=== PATIENT | female | born 1945 | race Caucasian/White ===

== ENCOUNTER → 2020-04-20 | Outpatient (CLI) | payer MEDICARE, BC ==
[2020-04-20 10:58] LABS: HEMOGLOBIN 14.4 g/dL (12.5-16.0); MEAN CELL VOLUME 91 fl (78-100); MEAN CORPUSCULAR HEMOGLOBIN 29 pg (27-31); MEAN CORPUSCULAR HGB CONC 32 g/dL (33-37); MEAN PLATELET VOLUME 9.1 fl (7.4-10.4); PLATELET COUNT 204 K/mm3 (130-400); RED BLOOD COUNT 4.93 M/mm3 (4.10-5.30); RED CELL DISTRIBUTION WIDTH 17.9 % (11.5-14.5)
[2020-04-20 11:05] LABS: ALBUMIN 3.7 g/dL (3.4-4.8)
[2020-04-20 11:06] LABS: POTASSIUM 4.5 mmol/L (3.5-5.1)
[2020-04-20 11:07] LABS: CALCIUM 9.4 mg/dL (8.3-10.5)
[2020-04-20 11:10] LABS: TOTAL BILIRUBIN 0.5 mg/dL (0.2-1.2)
[2020-04-20 11:36] LABS: LYMPHOCYTE 6 % (20-51); MONOCYTE 11 % (3-10); NEUTROPHILS 83 % (42-75)
== END ==
LOC: LAB 10:39
PROVIDERS: Family Medicine
DX: E03.9 Hypothyroidism, unspecified (principal)

== ENCOUNTER → 2020-04-22 | Outpatient (CLI) | payer MEDICARE, BC | LOC: LAB 12:52 | PROVIDERS: Family Medicine | DX: E03.9 Hypothyroidism, unspecified (principal) ==

== ENCOUNTER → 2021-01-06 | Outpatient (CLI) | payer MEDICARE, BC | LOC: LAB 07:23 | DX: Z20.822 Contact with and (suspected) exposure to COVID-19 (principal) ==

== ENCOUNTER → 2021-01-25 | Outpatient (CLI) | payer MEDICARE, BC | LOC: RAD 10:00 | DX: I65.23 Occlusion and stenosis of bilateral carotid arteries (principal) ==

== ENCOUNTER → 2021-01-27 | Outpatient (CLI) | payer MEDICARE, BC | LOC: LAB 09:49 | DX: Z20.822 Contact with and (suspected) exposure to COVID-19 (principal) ==

== ENCOUNTER → 2021-02-17 | Outpatient (CLI) | payer MEDICARE, BC | LOC: LAB 11:00 | DX: Z20.822 Contact with and (suspected) exposure to COVID-19 (principal) ==

== ENCOUNTER → 2021-03-06 | Outpatient (CLI) | payer MEDICARE, BC ==
[2021-03-06 11:54] LABS: BASO # 0.1 (0.02-0.10); EOS # 0.5 (0.04-0.40); HEMATOCRIT 44.5 % (37.0-47.0); HEMOGLOBIN 14.1 g/dL (12.5-16.0); LYMPH# 1.8 (1.50-4.00); MEAN CELL VOLUME 93 fl (78-100); MEAN CORPUSCULAR HEMOGLOBIN 29 pg (27-31); MEAN CORPUSCULAR HGB CONC 32 g/dL (33-37); MEAN PLATELET VOLUME 9.4 fl (7.4-10.4); MONO # 0.8 (0.20-0.80); NEU # 5.2 (1.40-6.50); PLATELET COUNT 275 K/mm3 (130-400); RED BLOOD COUNT 4.79 M/mm3 (4.10-5.30); RED CELL DISTRIBUTION WIDTH 14.9 % (11.5-14.5); WHITE BLOOD COUNT 8.3 K/mm3 (4.8-10.8)
[2021-03-06 12:05] LABS: ALBUMIN 4.1 g/dL (3.4-4.8); POTASSIUM 4.1 mmol/L (3.5-5.1)
[2021-03-06 12:07] LABS: CALCIUM 9.2 mg/dL (8.3-10.5)
[2021-03-06 12:08] LABS: TOTAL PROTEIN 6.9 g/dL (6.2-8.1)
[2021-03-06 12:10] LABS: TOTAL BILIRUBIN 0.7 mg/dL (0.2-1.2)
== END ==
LOC: LAB 11:40
PROVIDERS: Family Medicine
DX: Z00.00 Encounter for general adult medical examination without abnormal findings (principal); E03.9 Hypothyroidism, unspecified; E78.5 Hyperlipidemia, unspecified; E55.9 Vitamin D deficiency, unspecified

== ENCOUNTER → 2021-03-10 | Outpatient (CLI) | payer MEDICARE, BC | LOC: LAB 10:26 | DX: Z20.822 Contact with and (suspected) exposure to COVID-19 (principal) ==

== ENCOUNTER → 2021-03-31 | Outpatient (CLI) | payer MEDICARE, BC | LOC: LAB 11:44 | DX: Z20.822 Contact with and (suspected) exposure to COVID-19 (principal) ==

== ENCOUNTER → 2021-04-13 | Outpatient (CLI) | payer MEDICARE, BC | LOC: MAMMO 12:22 | DX: N64.89 Other specified disorders of breast (principal) ==

== ENCOUNTER → 2022-03-06 | Outpatient (CLI) | payer MEDICARE, BC ==
[2022-03-06 11:32] LABS: ALBUMIN 4.2 g/dL (3.4-4.8)
[2022-03-06 11:33] LABS: BASO # 0.12 K/mm3 (0.02-0.10); CALCIUM 9.6 mg/dL (8.3-10.5); EOS # 0.35 K/mm3 (0.04-0.40); EOS % 3.4 % (1.0-5.0); HEMATOCRIT 45.8 % (37.0-47.0); HEMOGLOBIN 14.8 g/dL (12.5-16.0); LYMPH# 2.08 K/mm3 (1.50-4.00); MEAN CELL VOLUME 93 fl (78-100); MEAN CORPUSCULAR HEMOGLOBIN 30 pg (27-31); MEAN CORPUSCULAR HGB CONC 32 g/dL (33-37); MEAN PLATELET VOLUME 9.2 fl (7.4-10.4); MONO # 0.65 K/mm3 (0.20-0.80); NEU # 7.02 K/mm3 (1.40-6.50); PLATELET COUNT 322 K/mm3 (130-400); RED BLOOD COUNT 4.94 M/mm3 (4.10-5.30); WHITE BLOOD COUNT 10.2 K/mm3 (4.8-10.8)
[2022-03-06 11:37] LABS: TOTAL BILIRUBIN 0.6 mg/dL (0.2-1.2)
== END ==
LOC: LAB 11:08
PROVIDERS: Family Medicine
DX: Z00.00 Encounter for general adult medical examination without abnormal findings (principal); C34.90 Malignant neoplasm of unspecified part of unspecified bronchus or lung; C79.31 Secondary malignant neoplasm of brain; E78.5 Hyperlipidemia, unspecified; I10 Essential (primary) hypertension; I65.29 Occlusion and stenosis of unspecified carotid artery; I63.9 Cerebral infarction, unspecified; E03.9 Hypothyroidism, unspecified; G31.84 Mild cognitive impairment of uncertain or unknown etiology; E55.9 Vitamin D deficiency, unspecified

== ENCOUNTER → 2023-09-26 | Outpatient (CLI) | payer MEDICARE, BC ==
[~2023-09-26] MED LIST: AMLODIPINE BESYL5 MG PO; ATORVASTATIN CA40 MG PO; DONEPEZIL HCL10 MG PO; ELIQUIS5 MG PO; LEVOTHYROXINE0.05 MG PO; MEMANTINE HCL10 MG PO; MUPIROCIN2% TP
== END ==
LOC: RAD 13:51
DX: E23.6 Other disorders of pituitary gland (principal); J44.9 Chronic obstructive pulmonary disease, unspecified; J98.4 Other disorders of lung; K11.20 Sialoadenitis, unspecified
CPT/HCPCS: Q9967

== ENCOUNTER → 2024-04-24 | Outpatient (CLI) | payer MEDICARE, BC ==
[~2024-04-24] MED LIST changes: +BETAMETHASONE D0.05% TOP; +BIOTIN10000 MCG PO; +CALCIUM 600 PLU1 TAB PO; +CEPHALEXIN500 M1 PO; +CIPRO250 M1 PO; +CLINDAMYCIN PHOSPH2% VG; +GARLIC SUPPLEM300 MG; +KEYTRUDA25 MG/ML IV; +KRILL OIL500 MG; +MAGNESIUM CHLOR70 MG; +MULTIVITAMIN1 EACH PO; +MYRBETRIQ50 MG PO; +VITAMIN C500 MG; +VITAMIN D350 MCG PO
[2024-06-16 11:31] LABS: ALBUMIN 3.9 g/dL (3.4-4.8); CALCIUM 9.3 mg/dL (8.3-10.5); TOTAL BILIRUBIN 0.5 mg/dL (0.2-1.2); TOTAL PROTEIN 6.6 g/dL (6.2-8.1)
[2024-06-16 11:34] LABS: BASO # 0.04 K/mm3 (0.02-0.10); EOS # 0.34 K/mm3 (0.04-0.40); EOS % 4.7 % (1.0-5.0); HEMATOCRIT 43.4 % (37.0-47.0); HEMOGLOBIN 13.8 g/dL (12.5-16.0); LYMPH# 1.24 K/mm3 (1.50-4.00); MEAN CELL VOLUME 92 fl (78-100); MEAN CORPUSCULAR HEMOGLOBIN 29 pg (27-31); MEAN CORPUSCULAR HGB CONC 32 g/dL (33-37); MEAN PLATELET VOLUME 9.5 fl (7.4-10.4); MONO # 0.69 K/mm3 (0.20-0.80); NEU # 4.98 K/mm3 (1.40-6.50); PLATELET COUNT 297 K/mm3 (130-400); RED BLOOD COUNT 4.73 M/mm3 (4.10-5.30); RED CELL DISTRIBUTION WIDTH 14.4 % (11.5-14.5); WHITE BLOOD COUNT 7.3 K/mm3 (4.8-10.8)
== END ==
LOC: LAB 12:11
PROVIDERS: Family Medicine
DX: E78.00 Pure hypercholesterolemia, unspecified (principal); E03.9 Hypothyroidism, unspecified; I10 Essential (primary) hypertension; E55.9 Vitamin D deficiency, unspecified

== ENCOUNTER 2024-06-05 14:22 | Emergency (ER) | payer MEDICARE, BC ==
[~2024-06-05] VITALS: Ht 154.9 cm; Wt 56.4 kg
[~2024-06-05 14:22] MED LIST changes: -BETAMETHASONE D0.05% TOP; -BIOTIN10000 MCG PO; -CALCIUM 600 PLU1 TAB PO; -CEPHALEXIN500 M1 PO; -CIPRO250 M1 PO; -CLINDAMYCIN PHOSPH2% VG; -GARLIC SUPPLEM300 MG; -KEYTRUDA25 MG/ML IV; -KRILL OIL500 MG; -MAGNESIUM CHLOR70 MG; -MULTIVITAMIN1 EACH PO; -MYRBETRIQ50 MG PO; -VITAMIN C500 MG; -VITAMIN D350 MCG PO
[2024-06-05 14:52] LABS: BASO # 0.07 K/mm3 (0.02-0.10); EOS % 6.1 % (1.0-5.0); HEMATOCRIT 39.3 % (37.0-47.0); HEMOGLOBIN 12.7 g/dL (12.5-16.0); LYMPH# 1.46 K/mm3 (1.50-4.00); MEAN CELL VOLUME 90 fl (78-100); MEAN CORPUSCULAR HEMOGLOBIN 29 pg (27-31); MEAN CORPUSCULAR HGB CONC 32 g/dL (33-37); MEAN PLATELET VOLUME 8.7 fl (7.4-10.4); MONO # 0.61 K/mm3 (0.20-0.80); NEU # 4.01 K/mm3 (1.40-6.50); PLATELET COUNT 368 K/mm3 (130-400); RED BLOOD COUNT 4.38 M/mm3 (4.10-5.30); RED CELL DISTRIBUTION WIDTH 13.9 % (11.5-14.5); WHITE BLOOD COUNT 6.6 K/mm3 (4.8-10.8)
[2024-06-05 14:57] LABS: ALBUMIN 3.8 g/dL (3.4-4.8)
[2024-06-05 14:58] LABS: CALCIUM 9.1 mg/dL (8.3-10.5)
[2024-06-05 15:00] LABS: TOTAL PROTEIN 6.2 g/dL (6.2-8.1)
[2024-06-05 15:01] LABS: TOTAL BILIRUBIN 0.3 mg/dL (0.2-1.2)
[2024-06-05] MEDS ORDERED: Iohexol 350 - 100 ML VIAL IV ONE (15:07)
[2024-06-05 15:13] LABS: PARTIAL THROMBOPLASTIN TIME 24.6 SECONDS (21.0-32.0); PROTHROMBIN TIME 10.2 SECONDS (9.0-12.0)
[2024-06-05 16:02] LABS: URINE APPEARANCE CLEAR (CLEAR); URINE COLOR YELLOW (YELLOW)
[2024-06-05 16:04] LABS: URINE BILIRUBIN NEGATIVE (NEGATIVE); URINE BLOOD NEGATIVE (NEGATIVE); URINE GLUCOSE NEGATIVE (NEGATIVE); URINE KETONE NEGATIVE (NEGATIVE); URINE LEUKOCYTE ESTERASE 1+ (NEGATIVE); URINE NITRATE NEGATIVE (NEGATIVE); URINE PROTEIN(semi-quant) NEGATIVE (NEGATIVE); URINE WBC 31-50 /hpf (0-3)
[2024-06-05] MEDS ORDERED: cefTRIAXone 1 G in Water For Injection,Sterile 10 ML IV ONE (16:30)
[2024-06-05] MEDS ORDERED: CIPRO250 M1 PO (16:37)
[2024-06-05 17:27] VITALS: BP 130/90
== END 2024-06-05 17:31 | disposition home or self-care (01) ==
LOC: ED 14:22
PROVIDERS: Physician Assistant
DX: N39.0 Urinary tract infection, site not specified (principal); C79.31 Secondary malignant neoplasm of brain; C34.90 Malignant neoplasm of unspecified part of unspecified bronchus or lung; R41.82 Altered mental status, unspecified; Z88.0 Allergy status to penicillin; Z79.899 Other long term (current) drug therapy
CPT/HCPCS: J0696; Q9967

== ENCOUNTER 2024-06-11 18:56 | Emergency (ER) | payer MEDICARE, BC ==
[~2024-06-11] VITALS: Ht 154.9 cm; Wt 57.0 kg
[~2024-06-11 18:56] MED LIST changes: -BETAMETHASONE D0.05% TOP; -BIOTIN10000 MCG PO; -CALCIUM 600 PLU1 TAB PO; -CEPHALEXIN500 M1 PO; -CLINDAMYCIN PHOSPH2% VG; -GARLIC SUPPLEM300 MG; -KEYTRUDA25 MG/ML IV; -KRILL OIL500 MG; -MAGNESIUM CHLOR70 MG; -MULTIVITAMIN1 EACH PO; -MYRBETRIQ50 MG PO; -VITAMIN C500 MG; -VITAMIN D350 MCG PO
[2024-06-11] MEDS ORDERED: NS 1,000 ML IV SCH (19:45)
[2024-06-11] MEDS ORDERED: cefTRIAXone 1 G in Water For Injection,Sterile 10 ML IV ONE (19:45)
[2024-06-11 20:18] LABS: BASO # 0.09 K/mm3 (0.02-0.10); EOS # 0.53 K/mm3 (0.04-0.40); HEMATOCRIT 38.3 % (37.0-47.0); LYMPH# 1.37 K/mm3 (1.50-4.00); MEAN CELL VOLUME 86 fl (78-100); MEAN CORPUSCULAR HEMOGLOBIN 29 pg (27-31); MEAN CORPUSCULAR HGB CONC 34 g/dL (33-37); MEAN PLATELET VOLUME 8.6 fl (7.4-10.4); MONO # 0.82 K/mm3 (0.20-0.80); NEU # 7.68 K/mm3 (1.40-6.50); PLATELET COUNT 349 K/mm3 (130-400); RED BLOOD COUNT 4.45 M/mm3 (4.10-5.30); RED CELL DISTRIBUTION WIDTH 13.6 % (11.5-14.5); WHITE BLOOD COUNT 10.5 K/mm3 (4.8-10.8)
[2024-06-11 20:25] LABS: SODIUM 125 mmol/L (136-145)
[2024-06-11 20:27] LABS: CALCIUM 9.7 mg/dL (8.3-10.5)
[2024-06-11 20:28] LABS: GLUCOSE 102 mg/dL (65-105); TOTAL PROTEIN 6.7 g/dL (6.2-8.1)
[2024-06-11 20:29] LABS: CARBON DIOXIDE 21 mmol/L (23-31)
[2024-06-11 20:30] LABS: TOTAL BILIRUBIN 0.8 mg/dL (0.2-1.2)
[2024-06-11 20:33] LABS: AST-SGOT 27 U/L (5-34)
[2024-06-11 20:34] LABS: ALT/SGPT 13 U/L (0-55)
[2024-06-11 20:42] LABS: TROPONIN-I < 0.030 ng/mL (0.00-0.033)
[2024-06-11] MEDS ORDERED: Ondansetron 4 MG/2 ML VIAL IV ONE (20:45)
[2024-06-11] MEDS ORDERED: Calcium Carbonate Chewable 500 MG TAB PO ONE (21:30)
[2024-06-11 22:00] VITALS: BP 140/75
[2024-06-11] MEDS ORDERED: CLINDAMYCIN PHOSPH2% VG (23:07)
[2024-06-11] MEDS ORDERED: MYRBETRIQ50 MG PO (23:10)
[2024-06-11] MEDS ORDERED: BETAMETHASONE D0.05% TOP (23:11)
[2024-06-11] MEDS ORDERED: VITAMIN C500 MG (23:12)
[2024-06-11] MEDS ORDERED: BIOTIN10000 MCG PO (23:13)
[2024-06-11] MEDS ORDERED: VITAMIN D350 MCG PO (23:15)
[2024-06-11] MEDS ORDERED: CALCIUM 600 PLU1 TAB PO (23:15)
[2024-06-11] MEDS ORDERED: KEYTRUDA25 MG/ML IV (23:16)
[2024-06-11] MEDS ORDERED: GARLIC SUPPLEM300 MG (23:16)
[2024-06-11] MEDS ORDERED: KRILL OIL500 MG (23:17)
[2024-06-11] MEDS ORDERED: MAGNESIUM CHLOR70 MG (23:18)
[2024-06-11] MEDS ORDERED: MULTIVITAMIN1 EACH PO (23:18)
== END 2024-06-11 22:00 | disposition other institution (70) ==
LOC: ED 18:56
PROVIDERS: Family Medicine
DX: N39.0 Urinary tract infection, site not specified (principal); R41.82 Altered mental status, unspecified; E87.8 Other disorders of electrolyte and fluid balance, not elsewhere classified
CPT/HCPCS: J0696; J2405; J7030

== ENCOUNTER 2024-06-11 20:48 | Inpatient (IN) | payer MEDICARE, BC ==
[~2024-06-11] VITALS: Ht 156.2 cm; Wt 56.2 kg
[2024-06-11] MEDS ORDERED: Acetaminophen 325 MG TAB PO PRN (21:30)
[2024-06-11] MEDS ORDERED: Polyethylene Glycol 3350 Powder 17 GM PACKET PO PRN (21:30)
[2024-06-11] MEDS ORDERED: NS 1,000 ML IV ONE (21:45)
[2024-06-11 22:00] VITALS: BP 122/74
[2024-06-11] MEDS ORDERED: Apixaban 5 MG TABLET PO SCH (22:42)
[2024-06-11] MEDS ORDERED: Memantine 5 MG TAB PO SCH (23:00)
[2024-06-11] MEDS ORDERED: CLINDAMYCIN PHOSPH2% VG (23:07)
[2024-06-11] MEDS ORDERED: MYRBETRIQ50 MG PO (23:10)
[2024-06-11] MEDS ORDERED: BETAMETHASONE D0.05% TOP (23:11)
[2024-06-11] MEDS ORDERED: VITAMIN C500 MG (23:12)
[2024-06-11] MEDS ORDERED: BIOTIN10000 MCG PO (23:13)
[2024-06-11] MEDS ORDERED: VITAMIN D350 MCG PO (23:15)
[2024-06-11] MEDS ORDERED: CALCIUM 600 PLU1 TAB PO (23:15)
[2024-06-11] MEDS ORDERED: GARLIC SUPPLEM300 MG (23:16)
[2024-06-11] MEDS ORDERED: KEYTRUDA25 MG/ML IV (23:16)
[2024-06-11] MEDS ORDERED: KRILL OIL500 MG (23:17)
[2024-06-11] MEDS ORDERED: MULTIVITAMIN1 EACH PO (23:18)
[2024-06-11] MEDS ORDERED: MAGNESIUM CHLOR70 MG (23:18)
[2024-06-12] VITALS (7 sets, daily range): BP systolic 99–170; BP diastolic 62–77
[2024-06-12 06:44] LABS: BASO # 0.08 K/mm3 (0.02-0.10); EOS # 0.46 K/mm3 (0.04-0.40); EOS % 7.3 % (1.0-5.0); HEMATOCRIT 34.9 % (37.0-47.0); HEMOGLOBIN 11.8 g/dL (12.5-16.0); LYMPH# 1.11 K/mm3 (1.50-4.00); MEAN CELL VOLUME 87 fl (78-100); MEAN CORPUSCULAR HEMOGLOBIN 29 pg (27-31); MEAN CORPUSCULAR HGB CONC 34 g/dL (33-37); MEAN PLATELET VOLUME 8.5 fl (7.4-10.4); MONO # 0.54 K/mm3 (0.20-0.80); NEU # 4.07 K/mm3 (1.40-6.50); PLATELET COUNT 287 K/mm3 (130-400); RED BLOOD COUNT 4.01 M/mm3 (4.10-5.30); RED CELL DISTRIBUTION WIDTH 13.8 % (11.5-14.5); WHITE BLOOD COUNT 6.3 K/mm3 (4.8-10.8)
[2024-06-12 06:53] LABS: CALCIUM 8.7 mg/dL (8.3-10.5)
[2024-06-12 06:56] LABS: TOTAL BILIRUBIN 0.5 mg/dL (0.2-1.2)
[2024-06-12] MEDS ORDERED: cefTRIAXone 1 G in Water For Injection,Sterile 10 ML IV SCH (07:00)
[2024-06-12] MEDS ORDERED: Donepezil 5 MG TAB PO SCH (09:00)
[2024-06-12] MEDS ORDERED: amLODIPine 5 MG TAB PO SCH (09:00)
[2024-06-12] MEDS ORDERED: Memantine 5 MG TAB PO SCH (09:00)
[2024-06-13 02:20] VITALS: BP 127/74
[2024-06-13 06:12] VITALS: BP 116/74
[2024-06-13 06:42] LABS: HEMATOCRIT 36.7 % (37.0-47.0); HEMOGLOBIN 12.1 g/dL (12.5-16.0); MEAN PLATELET VOLUME 8.8 fl (7.4-10.4); RED BLOOD COUNT 4.12 M/mm3 (4.10-5.30); RED CELL DISTRIBUTION WIDTH 14.4 % (11.5-14.5); WHITE BLOOD COUNT 5.8 K/mm3 (4.8-10.8)
[2024-06-13 06:50] LABS: CALCIUM 8.7 mg/dL (8.3-10.5)
[2024-06-13] MEDS ORDERED: CEPHALEXIN500 M1 PO (07:31)
[2024-06-13] MEDS ORDERED: Cephalexin 500 MG CAP PO SCH (09:00)
== END 2024-06-13 09:30 | disposition home or self-care (01) | DRG 690 ==
LOC: MED/SURG 20:48
PROVIDERS: Family Medicine; ADMIT Family Medicine
DX: N39.0 Urinary tract infection, site not specified (principal); E87.1 Hypo-osmolality and hyponatremia; C34.90 Malignant neoplasm of unspecified part of unspecified bronchus or lung; C79.31 Secondary malignant neoplasm of brain; R53.81 Other malaise; I10 Essential (primary) hypertension; E03.9 Hypothyroidism, unspecified; I25.10 Atherosclerotic heart disease of native coronary artery without angina pectoris; F03.90 Unspecified dementia, unspecified severity, without behavioral disturbance, psychotic disturbance, mood disturbance, and anxiety; Z86.73 Personal history of transient ischemic attack (TIA), and cerebral infarction without residual deficits
CPT/HCPCS: J0696; J7030

== ENCOUNTER → 2024-06-11 | Outpatient (REF) | payer MEDICARE, BC ==
[~2024-06-11] MED LIST changes: +BETAMETHASONE D0.05% TOP; +BIOTIN10000 MCG PO; +CALCIUM 600 PLU1 TAB PO; +CEPHALEXIN500 M1 PO; +CIPRO250 M1 PO; +CLINDAMYCIN PHOSPH2% VG; +GARLIC SUPPLEM300 MG; +KEYTRUDA25 MG/ML IV; +KRILL OIL500 MG; +MAGNESIUM CHLOR70 MG; +MULTIVITAMIN1 EACH PO; +MYRBETRIQ50 MG PO; +VITAMIN C500 MG; +VITAMIN D350 MCG PO
[2024-06-11 15:12] LABS: PH-URINE 5.5 (5.0 - 8.0); URINE APPEARANCE CLEAR (CLEAR); URINE BILIRUBIN NEGATIVE (NEGATIVE); URINE COLOR YELLOW (YELLOW); URINE GLUCOSE NEGATIVE (NEGATIVE); URINE KETONE NEGATIVE (NEGATIVE); URINE NITRATE NEGATIVE (NEGATIVE); URINE PROTEIN(semi-quant) NEGATIVE (NEGATIVE)
[2024-06-11 15:13] LABS: URINE BLOOD TRACE-INTACT (NEGATIVE); URINE LEUKOCYTE ESTERASE 2+ (NEGATIVE); URINE WBC 31-50 /hpf (0-3)
== END ==
LOC: LAB 14:30
PROVIDERS: Nurse Practitioner
DX: N39.0 Urinary tract infection, site not specified (principal)

== ENCOUNTER → 2024-06-19 | Outpatient (CLI) | payer MEDICARE, BC ==
[~2024-06-19] MED LIST changes: +BETAMETHASONE D0.05% TOP; +BIOTIN10000 MCG PO; +CALCIUM 600 PLU1 TAB PO; +CEPHALEXIN500 M1 PO; +CLINDAMYCIN PHOSPH2% VG; +GARLIC SUPPLEM300 MG; +KEYTRUDA25 MG/ML IV; +KRILL OIL500 MG; +MAGNESIUM CHLOR70 MG; +MULTIVITAMIN1 EACH PO; +MYRBETRIQ50 MG PO; +VITAMIN C500 MG; +VITAMIN D350 MCG PO
[2024-06-19 11:23] LABS: TOTAL PROTEIN 6.6 g/dL (6.2-8.1)
[2024-06-19 11:25] LABS: TOTAL BILIRUBIN 0.5 mg/dL (0.2-1.2)
== END ==
LOC: LAB 11:02
PROVIDERS: Nurse Practitioner
DX: E87.1 Hypo-osmolality and hyponatremia (principal)

== ENCOUNTER → 2024-07-17 | Outpatient (CLI) | payer MEDICARE, BC ==
[2024-07-17 11:26] LABS: PH-URINE 5.5 (5.0 - 8.0); URINE APPEARANCE CLOUDY (CLEAR); URINE BILIRUBIN NEGATIVE (NEGATIVE); URINE BLOOD TRACE-INTACT (NEGATIVE); URINE COLOR YELLOW (YELLOW); URINE GLUCOSE NEGATIVE (NEGATIVE); URINE KETONE NEGATIVE (NEGATIVE); URINE LEUKOCYTE ESTERASE 3+ (NEGATIVE); URINE NITRATE NEGATIVE (NEGATIVE); URINE PROTEIN(semi-quant) NEGATIVE (NEGATIVE); URINE WBC >50 /hpf (0-3)
== END ==
LOC: LAB 10:44
PROVIDERS: Nurse Practitioner
DX: N39.0 Urinary tract infection, site not specified (principal)

== ENCOUNTER 2024-08-18 18:09 | Emergency (ER) | payer MEDICARE, BC ==
[~2024-08-18] VITALS: Ht 154.9 cm; Wt 57.2 kg
[2024-08-18 19:10] LABS: BASO # 0.01 K/mm3 (0.02-0.10); EOS # 0.15 K/mm3 (0.04-0.40); EOS % 1.1 % (1.0-5.0); HEMATOCRIT 39.3 % (37.0-47.0); HEMOGLOBIN 13.2 g/dL (12.5-16.0); LYMPH# 0.45 K/mm3 (1.50-4.00); MEAN CELL VOLUME 88 fl (78-100); MEAN CORPUSCULAR HEMOGLOBIN 30 pg (27-31); MEAN CORPUSCULAR HGB CONC 34 g/dL (33-37); MEAN PLATELET VOLUME 9.8 fl (7.4-10.4); MONO # 0.66 K/mm3 (0.20-0.80); NEU # 12.59 K/mm3 (1.40-6.50); PLATELET COUNT 278 K/mm3 (130-400); RED BLOOD COUNT 4.47 M/mm3 (4.10-5.30); RED CELL DISTRIBUTION WIDTH 14.3 % (11.5-14.5); WHITE BLOOD COUNT 13.9 K/mm3 (4.8-10.8)
[2024-08-18 19:18] LABS: ALBUMIN 3.6 g/dL (3.4-4.8)
[2024-08-18 19:20] LABS: GLUCOSE 110 mg/dL (65-105); SODIUM 134 mmol/L (136-145); TOTAL PROTEIN 6.1 g/dL (6.2-8.1)
[2024-08-18 19:21] LABS: CALCIUM 9.7 mg/dL (8.3-10.5)
[2024-08-18 19:22] LABS: CARBON DIOXIDE 20 mmol/L (23-31); TOTAL BILIRUBIN 0.6 mg/dL (0.2-1.2)
[2024-08-18 19:26] LABS: AST-SGOT 23 U/L (5-34)
[2024-08-18 19:27] LABS: ALT/SGPT 16 U/L (0-55)
[2024-08-18 19:35] LABS: TROPONIN-I < 0.030 ng/mL (0.00-0.033)
[2024-08-18] MEDS ORDERED: NS 500 ML IV SCH ×2 (19:45→21:00)
[2024-08-18] MEDS ORDERED: Iohexol 350 - 100 ML VIAL IV ONE (20:56)
[2024-08-18 21:05] LABS: URINE APPEARANCE CLOUDY (CLEAR); URINE COLOR YELLOW (YELLOW)
[2024-08-18 21:07] LABS: PH-URINE 6.5 (5.0 - 8.0); URINE BILIRUBIN NEGATIVE (NEGATIVE); URINE BLOOD NEGATIVE (NEGATIVE); URINE GLUCOSE NEGATIVE (NEGATIVE); URINE KETONE NEGATIVE (NEGATIVE); URINE LEUKOCYTE ESTERASE 3+ (NEGATIVE); URINE NITRATE NEGATIVE (NEGATIVE); URINE PROTEIN(semi-quant) NEGATIVE (NEGATIVE)
[2024-08-18 21:12] LABS: URINE WBC >50 /hpf (0-3)
[2024-08-18 21:13] LABS: URINE MUCUS PRESENT (NOT PRESENT)
[2024-08-18] MEDS ORDERED: cefTRIAXone 1 G in Water For Injection,Sterile 10 ML IV ONE (21:15)
[2024-08-18] MEDS ORDERED: Ondansetron 4 MG/2 ML VIAL IV ONE (21:30)
[2024-08-18 21:45] VITALS: BP 92/68
== END 2024-08-18 21:45 | disposition other institution (70) ==
LOC: ED 18:09
PROVIDERS: Physician Assistant
DX: R41.82 Altered mental status, unspecified (principal); E87.1 Hypo-osmolality and hyponatremia; N39.0 Urinary tract infection, site not specified; Z79.899 Other long term (current) drug therapy; Z91.040 Latex allergy status; Z88.0 Allergy status to penicillin
CPT/HCPCS: J0696; J2405; J7040; Q9967

== ENCOUNTER 2024-08-18 21:25 | Inpatient (IN) | payer MEDICARE, BC ==
[~2024-08-18] VITALS: Ht 154.9 cm; Wt 55.1 kg
[2024-08-18] MEDS ORDERED: Ondansetron 4 MG/2 ML VIAL IV PRN (21:45)
[2024-08-18] MEDS ORDERED: Acetaminophen 325 MG TAB PO PRN (21:45)
[2024-08-18] MEDS ORDERED: NS 1,000 ML IV SCH (22:00)
[2024-08-18 22:24] VITALS: BP 107/63
[2024-08-19 02:27] VITALS: BP 102/62
[2024-08-19 05:58] VITALS: BP 100/62
[2024-08-19 06:06] LABS: BASO # 0.03 K/mm3 (0.02-0.10); EOS # 0.28 K/mm3 (0.04-0.40); EOS % 2.6 % (1.0-5.0); HEMATOCRIT 33.7 % (37.0-47.0); LYMPH# 0.77 K/mm3 (1.50-4.00); MEAN CELL VOLUME 90 fl (78-100); MEAN CORPUSCULAR HEMOGLOBIN 30 pg (27-31); MEAN CORPUSCULAR HGB CONC 33 g/dL (33-37); MEAN PLATELET VOLUME 9.7 fl (7.4-10.4); MONO # 0.61 K/mm3 (0.20-0.80); NEU # 9.21 K/mm3 (1.40-6.50); PLATELET COUNT 237 K/mm3 (130-400); RED BLOOD COUNT 3.74 M/mm3 (4.10-5.30); RED CELL DISTRIBUTION WIDTH 14.5 % (11.5-14.5); WHITE BLOOD COUNT 10.9 K/mm3 (4.8-10.8)
[2024-08-19 06:15] LABS: HEMOGLOBIN 11.1 g/dL (12.5-16.0)
[2024-08-19 06:19] LABS: ALBUMIN 2.9 g/dL (3.4-4.8)
[2024-08-19 06:22] LABS: TOTAL PROTEIN 4.9 g/dL (6.2-8.1)
[2024-08-19 06:24] LABS: TOTAL BILIRUBIN 0.6 mg/dL (0.2-1.2)
--- NOTE | 2024-08-19 07:00 | NUR ---
RESUMED CARE FROM ELDA STRINGER.
--- NOTE | 2024-08-19 08:30 | NUR ---
PATIENT IN RESTROOM UPON ARRIVAL TO ROOM. 650ML ILIA CLEAR URINE NOTED. PATIENT ASSISTED FROM RESTROOM TO BED FOR WEIGHT AND TO RECLINER WITH X2 ASSIST. SHUFFLE GAIT NOTED WITH CUEING NEEDED. PATIENT REPORTS DULL FLANK PAIN RATING 5/10 DENYING NEED FOR PRN. ASSESSMENT COMPLETED. IV TO LEFT AC PATENT, NS RUNNING AT 125ML/HR. NO COMPLAINTS AT THIS TIME. PATIENT REMAINS IN RECLINER, CHAIR ALARMED, CALL LIGHT WITHIN REACH.
[2024-08-19] MEDS ORDERED: amLODIPine 5 MG TAB PO SCH (09:00)
[2024-08-19] MEDS ORDERED: Multivitamin TAB PO SCH (09:00)
[2024-08-19] MEDS ORDERED: BETAMETHASONE DIP 0.05% TP SCH (09:00)
[2024-08-19] MEDS ORDERED: Apixaban 5 MG TABLET PO SCH (09:00)
[2024-08-19] MEDS ORDERED: Cholecalciferol (Vit D3) 25 MCG (1,000 Units) TAB PO SCH (09:00)
[2024-08-19] MEDS ORDERED: Calcium Carb/Vit D3 500 mg-5 mcg(200 Units) TAB PO SCH (09:00)
[2024-08-19] MEDS ORDERED: Memantine 5 MG TAB PO SCH (09:00)
[2024-08-19 10:01] VITALS: BP 98/64
[2024-08-19 14:00] VITALS: BP 111/61
[2024-08-19 17:44] VITALS: BP 109/61
--- NOTE | 2024-08-19 18:44 | NUR ---
REPORT TO JEOVANNY MCNULTY.
--- NOTE | 2024-08-19 19:53 | NUR ---
Report received from Luisa SCHROEDER. Patient resting in bed. A/0 to self, , place and Month, did not know the current year. IVF infusing NS at 125 ML/HR. Site patent to [facility] with arm board in place. Denies pain, SOA or cough. Assessment completed. HS medications given at this time. Takes whole without difficulty. Denies wants or needs. Bed alarm on. Call light in reach.
[2024-08-19] MEDS ORDERED: Donepezil 5 MG TAB PO SCH (21:00)
[2024-08-19] MEDS ORDERED: cefTRIAXone 1 G in Water For Injection,Sterile 10 ML IV SCH (21:00)
[2024-08-19 22:01] VITALS: BP 117/65
--- NOTE | 2024-08-19 22:19 | NUR ---
Ambulated to BR with max 2 assist. Needed cues to keep walker close and to stand up straight and put head up. Did not void. Brief damp. New bag of IVF hung to run at 75 ML/HR. Site patent.
[2024-08-20 02:12] VITALS: BP 138/70
--- NOTE | 2024-08-20 05:31 | NUR ---
Rested well all shift. Up to BR x2 with assist and walker. Needed cues each time for correct ambulation. Remains confused.
[2024-08-20 05:34] VITALS: BP 128/68
[2024-08-20 05:38] LABS: BASO # 0.05 K/mm3 (0.02-0.10); EOS # 0.49 K/mm3 (0.04-0.40); EOS % 7.5 % (1.0-5.0); HEMATOCRIT 32.2 % (37.0-47.0); HEMOGLOBIN 10.6 g/dL (12.5-16.0); LYMPH# 1.15 K/mm3 (1.50-4.00); MEAN CELL VOLUME 91 fl (78-100); MEAN CORPUSCULAR HEMOGLOBIN 30 pg (27-31); MEAN CORPUSCULAR HGB CONC 33 g/dL (33-37); MEAN PLATELET VOLUME 9.5 fl (7.4-10.4); MONO # 0.61 K/mm3 (0.20-0.80); NEU # 4.24 K/mm3 (1.40-6.50); PLATELET COUNT 203 K/mm3 (130-400); RED BLOOD COUNT 3.53 M/mm3 (4.10-5.30); RED CELL DISTRIBUTION WIDTH 14.9 % (11.5-14.5); WHITE BLOOD COUNT 6.6 K/mm3 (4.8-10.8)
[2024-08-20 05:47] LABS: ALBUMIN 2.9 g/dL (3.4-4.8)
[2024-08-20 05:49] LABS: CALCIUM 8.3 mg/dL (8.3-10.5)
[2024-08-20 05:50] LABS: TOTAL PROTEIN 4.8 g/dL (6.2-8.1)
[2024-08-20 05:52] LABS: TOTAL BILIRUBIN 0.4 mg/dL (0.2-1.2)
--- NOTE | 2024-08-20 06:49 | NUR ---
Dr. Diaz notified of CO2 of 17.
--- NOTE | 2024-08-20 06:56 | NUR ---
Report to Luisa SCHROEDER.
[2024-08-20 10:13] VITALS: BP 103/63
[2024-08-20 14:22] VITALS: BP 108/69
[2024-08-20 17:08] VITALS: BP 109/71
--- NOTE | 2024-08-20 18:38 | NUR ---
REPORT TO JEOVANNY MCNULTY.
--- NOTE | 2024-08-20 19:04 | NUR ---
Report received from Luisa SCHROEDER. Patient resting supine in bed with at bedside. A/O x4 tonight. Awake and talkative. Denies pain, SOA or cough. Denies pain or burning with urination. Assessment completed. INT patent to [facility]. Denies questions, wants or needs at this time. Bed alarm on. Call light in reach.
[2024-08-20 22:27] VITALS: BP 144/72
[2024-08-21 02:32] VITALS: BP 118/73
[2024-08-21 05:12] VITALS: BP 147/77
--- NOTE | 2024-08-21 06:14 | NUR ---
Rested well. Rang to go to BR PRN. More alert and conversing more then on admission.
--- NOTE | 2024-08-21 06:51 | NUR ---
Report to Luisa SCHROEDER.
--- NOTE | 2024-08-21 09:43 | NUR ---
PT IS ORIENTED TO SELF AND DATE, WAS ABLE TO TELL ME SHE WAS IN THE HOSPITAL BUT WAS UNSURE OF WHAT TOWN SHE WAS IN. WHEN ASKED A QUESTION SHE HAS TO THINK FOR SOME TIME BEFORE RESPONDING. PT STATES SHE FEELS WEAKER TODAY AND NAUSEATED. ZOFRAN GIVEN. DENIES PAIN. SITTING UP IN CHAIR WITH CALL LIGHT IN REACH AND CHAIR ALARM ON.
[2024-08-21 10:15] VITALS: BP 144/84
[2024-08-21] MEDS ORDERED: ONDANSETRON HYDR4 MG PO (10:46)
[2024-08-21] MEDS ORDERED: PEPCID 20MG TAB20 MG PO (10:46)
[2024-08-21] MEDS ORDERED: CEPHALEXIN500 M1 PO (10:48)
--- NOTE | 2024-08-21 13:11 | NUR ---
Discharge instructions and medications reviewed with pt and . D/C IV and telemetry. All belongings sent home with pt. Ambulated out of hopital with . No further questions or concerns stated at this time.
== END 2024-08-21 13:15 | disposition home or self-care (01) | DRG 690 ==
LOC: MED/SURG 21:25
PROVIDERS: ADMIT Physician Assistant
DX: N39.0 Urinary tract infection, site not specified (principal); C79.31 Secondary malignant neoplasm of brain; E87.1 Hypo-osmolality and hyponatremia; I10 Essential (primary) hypertension; I65.23 Occlusion and stenosis of bilateral carotid arteries; E03.9 Hypothyroidism, unspecified; K21.9 Gastro-esophageal reflux disease without esophagitis; F03.90 Unspecified dementia, unspecified severity, without behavioral disturbance, psychotic disturbance, mood disturbance, and anxiety; E78.5 Hyperlipidemia, unspecified; R53.81 Other malaise; Z79.01 Long term (current) use of anticoagulants; Z86.73 Personal history of transient ischemic attack (TIA), and cerebral infarction without residual deficits; Z79.890 Hormone replacement therapy; Z85.118 Personal history of other malignant neoplasm of bronchus and lung; Z88.0 Allergy status to penicillin
CPT/HCPCS: J0696; J2405; J7030

== ENCOUNTER 2024-08-30 18:41 | Emergency (ER) | payer MEDICARE, BC ==
[~2024-08-30] VITALS: Ht 154.9 cm; Wt 56.0 kg
[~2024-08-30 18:41] MED LIST changes: +ONDANSETRON HYDR4 MG PO; +PEPCID 20MG TAB20 MG PO
[2024-08-30] MEDS ORDERED: CEPHALEXIN250 MG PO (18:58)
[2024-08-30 19:09] LABS: ALBUMIN 3.9 g/dL (3.4-4.8); SODIUM 139 mmol/L (136-145)
[2024-08-30 19:10] LABS: BASO # 0.08 K/mm3 (0.02-0.10); CALCIUM 9.4 mg/dL (8.3-10.5); EOS # 0.39 K/mm3 (0.04-0.40); EOS % 5.3 % (1.0-5.0); HEMATOCRIT 41.3 % (37.0-47.0); HEMOGLOBIN 13.4 g/dL (12.5-16.0); MEAN CELL VOLUME 89 fl (78-100); MEAN CORPUSCULAR HEMOGLOBIN 29 pg (27-31); MEAN CORPUSCULAR HGB CONC 32 g/dL (33-37); MEAN PLATELET VOLUME 9.4 fl (7.4-10.4); NEU # 4.22 K/mm3 (1.40-6.50); PLATELET COUNT 340 K/mm3 (130-400); RED BLOOD COUNT 4.62 M/mm3 (4.10-5.30); RED CELL DISTRIBUTION WIDTH 14.3 % (11.5-14.5); WHITE BLOOD COUNT 7.4 K/mm3 (4.8-10.8)
[2024-08-30 19:11] LABS: GLUCOSE 93 mg/dL (65-105); TOTAL PROTEIN 6.6 g/dL (6.2-8.1)
[2024-08-30 19:12] LABS: CARBON DIOXIDE 19 mmol/L (23-31)
[2024-08-30 19:13] LABS: TOTAL BILIRUBIN 0.3 mg/dL (0.2-1.2)
[2024-08-30 19:17] LABS: URINE APPEARANCE SLIGHTLY CLOUDY (CLEAR); URINE BILIRUBIN NEGATIVE (NEGATIVE); URINE COLOR YELLOW (YELLOW); URINE GLUCOSE NEGATIVE (NEGATIVE); URINE KETONE NEGATIVE (NEGATIVE); URINE PROTEIN(semi-quant) NEGATIVE (NEGATIVE)
[2024-08-30 19:17] LABS: AST-SGOT 19 U/L (5-34)
[2024-08-30 19:18] LABS: URINE BLOOD NEGATIVE (NEGATIVE); URINE LEUKOCYTE ESTERASE 3+ (NEGATIVE); URINE NITRATE NEGATIVE (NEGATIVE); URINE WBC 16-30 /hpf (0-3)
[2024-08-30 19:18] LABS: ALT/SGPT 14 U/L (0-55)
[2024-08-30 19:25] LABS: PROTHROMBIN TIME 9.9 SECONDS (9.0-12.0)
[2024-08-30 19:28] LABS: TROPONIN-I < 0.030 ng/mL (0.00-0.033)
[2024-08-30] MEDS ORDERED: cefTRIAXone 1 G in Water For Injection,Sterile 10 ML IV ONE (19:30)
[2024-08-30] MEDS ORDERED: Iohexol 350 - 100 ML VIAL IV ONE (19:34)
[2024-08-30] MEDS ORDERED: CEPHALEXIN500 M1 PO (20:14)
[2024-08-30 20:52] VITALS: BP 120/97
== END 2024-08-30 20:54 | disposition home or self-care (01) ==
LOC: ED 18:41
PROVIDERS: Physician Assistant
DX: N39.0 Urinary tract infection, site not specified (principal); R41.82 Altered mental status, unspecified; Z88.0 Allergy status to penicillin; Z91.040 Latex allergy status
CPT/HCPCS: J0696; Q9967

== ENCOUNTER → 2024-09-09 | Outpatient (CLI) | payer MEDICARE, BC ==
[~2024-09-09] MED LIST changes: +CEPHALEXIN250 MG PO
== END ==
LOC: RAD 09:21
DX: I65.23 Occlusion and stenosis of bilateral carotid arteries (principal)

== ENCOUNTER → 2024-10-26 | Day surgery (SDC) | payer MEDICARE, BC ==
[~2024-10-26] MED LIST changes: +Lidocaine PF 2% (20 MG/ML) 5 ML VIAL ONE
== END ==
LOC: MSO
DX: Z12.11 Encounter for screening for malignant neoplasm of colon (principal); K21.9 Gastro-esophageal reflux disease without esophagitis; K44.9 Diaphragmatic hernia without obstruction or gangrene; K57.30 Diverticulosis of large intestine without perforation or abscess without bleeding; Z79.899 Other long term (current) drug therapy; Z79.01 Long term (current) use of anticoagulants; Z86.0100 Personal history of colon polyps, unspecified; Z87.891 Personal history of nicotine dependence; Z85.118 Personal history of other malignant neoplasm of bronchus and lung; Z86.73 Personal history of transient ischemic attack (TIA), and cerebral infarction without residual deficits
CPT/HCPCS: 00813; J2704; J7120

== ENCOUNTER 2025-01-23 16:35 | Emergency (ER) | payer MEDICARE, BC ==
[~2025-01-23] VITALS: Ht 12.7 cm; Wt 56.0 kg
[~2025-01-23 16:35] MED LIST changes: -Lidocaine PF 2% (20 MG/ML) 5 ML VIAL ONE
[2025-01-23 17:00] VITALS: BP 140/71
[2025-01-23] MEDS ORDERED: CEFDINIR300 MG PO (23:30)
== END 2025-01-23 18:14 | disposition home or self-care (01) ==
LOC: ED 16:35
DX: S80.02XA Contusion of left knee, initial encounter (principal); S00.83XA Contusion of other part of head, initial encounter; S80.211A Abrasion, right knee, initial encounter; Z91.040 Latex allergy status; Z87.891 Personal history of nicotine dependence; W18.30XA Fall on same level, unspecified, initial encounter; Y93.01 Activity, walking, marching and hiking

== ENCOUNTER 2025-01-23 21:41 | Emergency (ER) | payer MEDICARE, BC ==
[~2025-01-23] VITALS: Wt 56.0 kg
[2025-01-23 23:06] LABS: URINE COLOR YELLOW (YELLOW)
[2025-01-23 23:07] LABS: URINE APPEARANCE CLOUDY (CLEAR); URINE BILIRUBIN 1+ (NEGATIVE); URINE BLOOD TRACE-INTACT (NEGATIVE); URINE GLUCOSE NEGATIVE (NEGATIVE); URINE KETONE 2+ (NEGATIVE); URINE LEUKOCYTE ESTERASE 3+ (NEGATIVE); URINE NITRATE POSITIVE (NEGATIVE); URINE PROTEIN(semi-quant) TRACE (NEGATIVE)
[2025-01-23 23:15] LABS: URINE WBC >50 /hpf (0-3)
[2025-01-23] MEDS ORDERED: Cefdinir 300 MG CAP PO ONE (23:30)
[2025-01-23] MEDS ORDERED: CEFDINIR300 MG PO (23:30)
[2025-01-23 23:45] VITALS: BP 152/86
== END 2025-01-23 23:45 | disposition home or self-care (01) ==
LOC: ED 21:41
PROVIDERS: Family Medicine
DX: S00.532A Contusion of oral cavity, initial encounter (principal); R82.81 Pyuria; Z87.440 Personal history of urinary (tract) infections; Z85.118 Personal history of other malignant neoplasm of bronchus and lung; Z85.841 Personal history of malignant neoplasm of brain; Z86.73 Personal history of transient ischemic attack (TIA), and cerebral infarction without residual deficits; Z88.0 Allergy status to penicillin; Z91.040 Latex allergy status; W19.XXXA Unspecified fall, initial encounter

== ENCOUNTER 2025-03-02 13:12 | Observation (INO) | payer MEDICARE, BC ==
[~2025-03-02] VITALS: Ht 154.9 cm; Wt 53.5 kg
[~2025-03-02 13:12] MED LIST changes: +CEFDINIR300 MG PO
[2025-03-02] MEDS ORDERED: ATORVASTATIN CA40 MG PO (13:30)
[2025-03-02] MEDS ORDERED: SEPTRA DS 8001 TAB PO (13:31)
[2025-03-02] MEDS ORDERED: CEPHALEXIN250 M2 PO (13:31)
[2025-03-02] MEDS ORDERED: GEMTESA75 MG PO (13:33)
[2025-03-02] MEDS ORDERED: MIRABEGRON ER50 MG PO (13:34)
[2025-03-02 13:56] LABS: BASO # 0.04 K/mm3 (0.02-0.10); EOS # 0.08 K/mm3 (0.04-0.40); EOS % 0.5 % (1.0-5.0); HEMATOCRIT 40.2 % (37.0-47.0); HEMOGLOBIN 12.8 g/dL (12.5-16.0); LYMPH# 0.97 K/mm3 (1.50-4.00); MEAN CELL VOLUME 92 fl (78-100); MEAN CORPUSCULAR HEMOGLOBIN 29 pg (27-31); MEAN CORPUSCULAR HGB CONC 32 g/dL (33-37); MEAN PLATELET VOLUME 9.1 fl (7.4-10.4); MONO # 0.62 K/mm3 (0.20-0.80); NEU # 13.15 K/mm3 (1.40-6.50); PLATELET COUNT 288 K/mm3 (130-400); RED BLOOD COUNT 4.38 M/mm3 (4.10-5.30); WHITE BLOOD COUNT 14.9 K/mm3 (4.8-10.8)
[2025-03-02 14:01] LABS: ALBUMIN 3.5 g/dL (3.4-4.8); SODIUM 134 mmol/L (136-145)
[2025-03-02 14:02] LABS: CALCIUM 8.3 mg/dL (8.3-10.5)
[2025-03-02 14:03] LABS: GLUCOSE 104 mg/dL (65-105); TOTAL PROTEIN 6.3 g/dL (6.2-8.1)
[2025-03-02 14:05] LABS: CARBON DIOXIDE 20 mmol/L (23-31); TOTAL BILIRUBIN 0.5 mg/dL (0.2-1.2)
[2025-03-02 14:09] LABS: AST-SGOT 17 U/L (5-34)
[2025-03-02 14:10] LABS: ALT/SGPT 15 U/L (0-55); MAGNESIUM 1.92 mg/dL (1.60-2.60)
[2025-03-02 14:17] LABS: TROPONIN-I < 0.030 ng/mL (0.00-0.033)
[2025-03-02 15:16] LABS: PH-URINE 7.5 (5.0 - 8.0); URINE APPEARANCE SLIGHTLY CLOUDY (CLEAR); URINE BILIRUBIN NEGATIVE (NEGATIVE); URINE BLOOD NEGATIVE (NEGATIVE); URINE COLOR YELLOW (YELLOW); URINE GLUCOSE NEGATIVE (NEGATIVE); URINE KETONE NEGATIVE (NEGATIVE); URINE LEUKOCYTE ESTERASE 1+ (NEGATIVE); URINE NITRATE NEGATIVE (NEGATIVE); URINE PROTEIN(semi-quant) NEGATIVE (NEGATIVE); URINE WBC 31-50 /hpf (0-3)
[2025-03-02] MEDS ORDERED: cefTRIAXone 1 G in Water For Injection,Sterile 10 ML IV ONE (15:30)
[2025-03-02] MEDS ORDERED: NS 1,000 ML IV SCH (16:00)
[2025-03-02] MEDS ORDERED: Ondansetron 4 MG/2 ML VIAL IV PRN (16:00)
[2025-03-02] MEDS ORDERED: Acetaminophen 325 MG TAB PO PRN (16:00)
[2025-03-02] MEDS ORDERED: Bisacodyl 5 MG TAB PO PRN (16:00)
[2025-03-02 16:07] VITALS: BP 123/79
--- NOTE | 2025-03-02 18:00 | NUR ---
DURING ASSESSMENT THIS NURSE ASKED PTS CAREGIVER QUESTIONS ABOUT PTS NOMRAL DAY AT HOME. PAT, PTS STATED SHE TENDS TO USE FURNTIURE TO GET AROUND THE HOME. PAT REPORTS SHE HAS BACK PAIN THAT CAUSES HER TO BE STOOPED OVER. PT IS CURRENTLY DROWSY, WILL OPEN HER EYES IF TOUCHED ON THE SHOULDER OR HER NAME IS SAID. PTS ABDOMEN IS FIRM, PT GRIMACES WHEN PALPATED. PAT REPORTS SHE HASN'T HAD A BM IN ABOUT 3 DAYS. THIS NURSE ASKED PAT IF PT SWALLOWS PILLS AT HOME. HE REPLIED YES CONFIDENTLY. PT REFUSED WATER. THIS NURSE USED PUDDING AND PLACED PILLS WHOLE FOR PT TO SWALLOW. PT TOOK THE PUDDING AND CHEWED PILLS. PT COULD NOT EFFECTIVELY SWALLOW THEM. AFTER THIS, LEIA Bay RN ASKED PAT HOW SHE SWALLOWS PILLS AT HOME. PAT REPLIED "SHE SWALLOWS THEM IF I PLACE THEM ALL THE WAY TO THE BACK OF HER TOUGUE." PT IS NOW TAKING HER PILLS CRUSHED IN APPLESAUCE. PTS REQUESTED FOR HER TO USE THE RESTROOM. PAT WENT HOME AT THIS TIME. (183). DIMPLE ROMO AND THIS NURSE, ASSTED PT TO USE A WALKER WITH A GAIT BELT. PT STUTTER STEPPED 3-5 STEPS, WALKER BECAME UNSTABLE LIFTING OFF OF THE FLOOR. PTS LEGS CROSSED OVER EACH OTHER. THIS NURSE AND PCT MAX ASSISTED PT INTO BED. PT IS INCONTINENT OF URINE. WHILE CHANGING PTS BRIEF, PT BECAME RIGID, AND TEARFUL WHILE ATTMEPTING TO HOLD DOWN HER GOWN. THIS NURSE RE ASSURED PT SHE IS SAFE. ONCE PT WAS CHANGED AND COVERED BACK UP PT RELAXED. PTS BED ALARM AND CHAIR ALARM IS ON. CALL LIGHT WITHIN REACH.
--- NOTE | 2025-03-02 18:48 | NUR ---
PT ADDMITTED FOR OBSERVAITON FOR UTI AND ALTERED MENTAL STATUS. PTS IS HER PRIMARY CAREGIVER. CAREGIVER IS VAGUE IN ANSWERING ABOUT PTS BASELINE FUNCTIONING. PTS STATED TO THIS NURSE PT CAN SWALLOW PILLS WHOLE. PT WAS UNABLE TO SWALLOW PILLS WITH PUDDING. PT POCKETED HER PILLS.
[2025-03-02 19:00] VITALS: BP 116/71
--- NOTE | 2025-03-02 19:00 | NUR ---
TELEMETRY STARTED AT 1800
--- NOTE | 2025-03-02 19:50 | NUR ---
PT RESTING QUIETLY WITH EYES CLOSED. PT AWAKENED WITH SHAKING AND CALLING NAME. PT LETHARGIC. A&O TO SELF ONLY. PT SLOW TO RESPOND TO QUESTIONS. DENIES PAIN. LUNGS CLEAR. ABD SOFT AND NON TENDER. SKIN WARM AND DRY. NO OPEN WOUNDS NOTED. BRUISE NOTED TO LEFT EYE. 20G IV TO RIGHT AC WITH NS RUNNING AT 100ML/HR WITHOUT DIFFICULTY.
[2025-03-02] MEDS ORDERED: Apixaban 5 MG TABLET PO SCH (21:00)
[2025-03-02] MEDS ORDERED: Calcium Carb/Vit D3 500 mg-5 mcg(200 Units) TAB PO SCH (21:00)
[2025-03-02] MEDS ORDERED: Memantine 10 MG TAB PO SCH (21:00)
[2025-03-02 23:35] VITALS: BP 102/64
[2025-03-03 03:00] VITALS: BP 132/78
[2025-03-03 05:55] LABS: BASO # 0.05 K/mm3 (0.02-0.10); EOS # 0.14 K/mm3 (0.04-0.40); EOS % 1.2 % (1.0-5.0); HEMATOCRIT 37.5 % (37.0-47.0); HEMOGLOBIN 12.3 g/dL (12.5-16.0); LYMPH# 1.31 K/mm3 (1.50-4.00); MEAN CELL VOLUME 92 fl (78-100); MEAN CORPUSCULAR HEMOGLOBIN 30 pg (27-31); MEAN CORPUSCULAR HGB CONC 33 g/dL (33-37); MEAN PLATELET VOLUME 9.3 fl (7.4-10.4); MONO # 0.71 K/mm3 (0.20-0.80); NEU # 8.98 K/mm3 (1.40-6.50); PLATELET COUNT 254 K/mm3 (130-400); RED CELL DISTRIBUTION WIDTH 14.7 % (11.5-14.5); WHITE BLOOD COUNT 11.2 K/mm3 (4.8-10.8)
[2025-03-03 06:10] LABS: ALBUMIN 3.3 g/dL (3.4-4.8)
[2025-03-03 06:11] LABS: CALCIUM 8.5 mg/dL (8.3-10.5)
[2025-03-03 06:13] LABS: TOTAL PROTEIN 5.9 g/dL (6.2-8.1)
[2025-03-03 06:14] LABS: TOTAL BILIRUBIN 0.7 mg/dL (0.2-1.2)
[2025-03-03 07:50] VITALS: BP 135/75
[2025-03-03] MEDS ORDERED: Cephalexin 250 MG CAP PO SCH (09:00)
[2025-03-03] MEDS ORDERED: Famotidine 20 MG TAB PO SCH (09:00)
[2025-03-03] MEDS ORDERED: amLODIPine 5 MG TAB PO SCH (09:00)
[2025-03-03] MEDS ORDERED: Donepezil 5 MG TAB PO SCH (09:00)
[2025-03-03] MEDS ORDERED: Multivitamin TAB PO SCH (09:00)
[2025-03-03] MEDS ORDERED: Cholecalciferol (Vit D3) 25 MCG (1,000 Units) TAB PO SCH (09:00)
--- NOTE | 2025-03-03 11:30 | NUR ---
Pts family stated pt was vomiting, and that she needed to urinate in the bathroom. This nurse educated family and pt about the function of a purewick. Pt has been incontinent throughout the evening. Pt is aware to self and place. This nusre had provided 900ml water to the pt at 1115, pt had consumed 600mls within the 15 min of having it. This nurse educated family about this possibly being the causation of emesis.
[2025-03-03 11:35] VITALS: BP 116/67
--- NOTE | 2025-03-03 12:16 | NUR ---
This nurse notifed Dr. Martin of pts Sodium level of 130. Pt to continue NS @ 100ml/hr.
--- NOTE | 2025-03-03 15:24 | NUR ---
SW met with patient and her spouse Dc to complete intake. Patient lives at home with her Dc ([phone]) in [place]. Dc is her primary licensed pesticide applicator as she has multiple health conditions and recurrent UTI's. Per spouse, she furniture surfs at home and utilizes a walker however he has to help her with ADL's. Patient does not currently have any formal supports in the home to assist with caretaking. She has been treated in the past at [facility] for out patient PT. PCP is and they utilize [facility] pharmacy without cost difficulty. Per Pat, the patient does not have a DPOA-HC and they have a meeting with their commercial litigation attorney in the next few weeks to get one in place. This SW and hospitalist talk with Pat about the possibility of therapy should the patient meet qualifications. Pat verbalizes that he would like to think about it over night and see if the patient will "bounce back". Goal is for the patient to return home. Discharge plan: Home pending pt/ot rec's
[2025-03-03] MEDS ORDERED: cefTRIAXone 1 G in Water For Injection,Sterile 10 ML IV SCH (15:30)
[2025-03-03 15:50] VITALS: BP 126/79
[2025-03-03 19:00] VITALS: BP 127/78
--- NOTE | 2025-03-03 19:00 | NUR ---
REPORT RECEIVED FROM ELDA BRAVO
--- NOTE | 2025-03-03 22:00 | NUR ---
ON ASSESS PATIENT RESTING IN RECLINER. ANSWERS NAME AND STATES IN HOSPITAL, BUT DOES NOT KNOW TOWN OR TIME. DENIES PAIN OR DISCOMFORT. IV PATENT, FLUIDS RUNNING PER ORDERS. CONTINUES WITH BRUISE TO L EYE. MEDS TAKEN CRUSHED IN APPLESAUCE. AMBULATES WITH ONE ASSIST TO AND FROM TOILET. PUREWICK PLACED WHILE IN BED. CALL LIGHT IN REACH. BED ALARM ON
[2025-03-03 23:21] VITALS: BP 154/83
[2025-03-04 03:26] VITALS: BP 141/83
--- NOTE | 2025-03-04 04:07 | NUR ---
PATIENT RESTING QUIETLY IN BED. BREATHING UNLABORED ON RA. CALL LIGHT IN REACH. BED ALARM ON
[2025-03-04 07:00] LABS: BASO # 0.05 K/mm3 (0.02-0.10); EOS # 0.23 K/mm3 (0.04-0.40); EOS % 2.5 % (1.0-5.0); HEMATOCRIT 35.9 % (37.0-47.0); HEMOGLOBIN 12.1 g/dL (12.5-16.0); MEAN CELL VOLUME 90 fl (78-100); MEAN CORPUSCULAR HEMOGLOBIN 30 pg (27-31); MEAN CORPUSCULAR HGB CONC 34 g/dL (33-37); MONO # 0.59 K/mm3 (0.20-0.80); NEU # 7.45 K/mm3 (1.40-6.50); PLATELET COUNT 227 K/mm3 (130-400); RED BLOOD COUNT 4.01 M/mm3 (4.10-5.30); RED CELL DISTRIBUTION WIDTH 14.2 % (11.5-14.5); WHITE BLOOD COUNT 9.4 K/mm3 (4.8-10.8)
--- NOTE | 2025-03-04 07:00 | NUR ---
REPORT RECIEVED FROM ELDA PIERSON
[2025-03-04 07:16] LABS: CALCIUM 8.5 mg/dL (8.3-10.5)
[2025-03-04 07:17] LABS: TOTAL PROTEIN 5.4 g/dL (6.2-8.1)
[2025-03-04 07:19] LABS: TOTAL BILIRUBIN 0.4 mg/dL (0.2-1.2)
--- NOTE | 2025-03-04 07:30 | NUR ---
PATIENT RESTING IN BED WITH EYES OPEN, AT BEDSIDE. PATIENT IS ALERT AND ORIENTED X2, DENIES PAIN AT THIS TIME. PATIENT ASKS TO GO TO THE BATHROOM. THIS NURSE ASSITS PATIENT TO BATHROOM x1 ASSIST WITH WALKER. PATIENT THEN ASSISTED TO CHIAR FOR MORNING MEAL. PATIENT DENIES OTHER NEEDS OR COMPLAINTS AT THIS TIME. PATIENT REMIANS PRESENT IN ROOM. ASSESSMENT COMPLETE. CHAIR ALARM ON, CALL LIGHT WITHIN REACH.
[2025-03-04 07:46] VITALS: BP 132/80
[2025-03-04] MEDS ORDERED: Cefuroxime 250 MG TAB PO SCH (08:11)
--- NOTE | 2025-03-04 08:30 | NUR ---
PLAN TO DISCHARGE TODAY.
[2025-03-04] MEDS ORDERED: CEFUROXIME AXE250 MG PO (08:36)
--- NOTE | 2025-03-04 12:30 | NUR ---
Patient scheduled to dc to home later today with recommendation of home health. [email or web address] list of home health agencies provided to the patients at bedside who will review choices and let me know which agency they would like to go with.
--- NOTE | 2025-03-04 13:33 | NUR ---
DISCHARGE INSTRUCTIONS REVIEWED WITH AND PATIENT AT THIS TIME. ALL QUESTIONS ANSWERED AND VERBALIZED UNDERSTANADING, PATIENT DISCHARGED HOME VIA WHEELCHAIR IN CARE OF .
== END 2025-03-04 13:33 | disposition home health service (06) ==
LOC: ED 13:12 → MED/SURG 15:23
PROVIDERS: Family Medicine; ADMIT Physician Assistant
DX: R41.82 Altered mental status, unspecified (principal); N39.0 Urinary tract infection, site not specified; C34.90 Malignant neoplasm of unspecified part of unspecified bronchus or lung; C79.31 Secondary malignant neoplasm of brain; I10 Essential (primary) hypertension; E03.9 Hypothyroidism, unspecified; F03.90 Unspecified dementia, unspecified severity, without behavioral disturbance, psychotic disturbance, mood disturbance, and anxiety; Z86.73 Personal history of transient ischemic attack (TIA), and cerebral infarction without residual deficits; Z79.01 Long term (current) use of anticoagulants; Z79.899 Other long term (current) drug therapy
CPT/HCPCS: G0378; J0696; J2405; J7030